=== PATIENT | female | born 1960 | race African-American/Black ===

== ENCOUNTER 2024-01-22 16:12 | Emergency (ER) | payer MEDICARE, OTHER, SELFPAY ==
[2024-01-22 16:16] VITALS: BP 114/89
[2024-01-22 16:53] VITALS: BMI 33.9
[2024-01-22 17:01] VITALS: BP 128/51
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
[2024-01-22 18:03] VITALS: BP 124/72
[2024-01-22 19:00] VITALS: BP 98/75
[2024-01-22 20:36] VITALS: BP 125/65
[2024-01-22] MEDS: NSS 1000 IV (20:36)
[2024-01-22 21:01] LABS: Urine Albumin Trace (Neg - Trace); Urine Bilirubin 1+ (Negative); Urine Character Clear (Clear); Urine Color Yellow; Urine Glucose Negative (Negative); Urine Ketone Trace (Negative); Urine Leukocyte 1+ (Negative); Urine Nitrite Negative (Negative); Urine Occult Blood Negative (Negative); Urine Specific Gravity 1.015 (<1.030); Urine Urobilinogen Negative (Neg - 1+)
[2024-01-22 21:09] LABS: Urine Mucus Few; Urine Squamous Cell >30 /LPF (Few)
[2024-01-22 21:11] LABS: Urine Bacteria Few (Negative); Urine Red Blood Cell None Seen /HPF (0-2)
== END 2024-01-22 21:39 | disposition home or self-care (01) ==
LOC: EMR 16:12
PROVIDERS: Clinical Nurse Specialist Family Health; EMERGENCY PHYSICIAN Emergency Medicine; FAMILY PHYSICIAN Nurse Practitioner
DX: R11.2 Nausea with vomiting, unspecified (principal); R10.9 Unspecified abdominal pain; R50.9 Fever, unspecified; R19.7 Diarrhea, unspecified; I48.91 Unspecified atrial fibrillation; J44.9 Chronic obstructive pulmonary disease, unspecified; E78.00 Pure hypercholesterolemia, unspecified; I11.0 Hypertensive heart disease with heart failure; I50.9 Heart failure, unspecified; J90 Pleural effusion, not elsewhere classified; D25.9 Leiomyoma of uterus, unspecified; Z85.3 Personal history of malignant neoplasm of breast; Z86.718 Personal history of other venous thrombosis and embolism; Z95.810 Presence of automatic (implantable) cardiac defibrillator; Z87.891 Personal history of nicotine dependence; Z92.21 Personal history of antineoplastic chemotherapy; Z90.11 Acquired absence of right breast and nipple
CPT/HCPCS: 99284; 96360; 74177; 81003; 81015; 87086; Q9967

== ENCOUNTER 2024-08-01 01:12 | Emergency (ER) | payer OTHER, SELFPAY ==
[2024-08-01 01:15] VITALS: BP 120/94
[2024-08-01 01:34] VITALS: BP 111/91
[2024-08-01 01:35] VITALS: BMI 31.5
[2024-08-01] MEDS: NSS 1000 IV (01:56)
[2024-08-01 01:57] LABS: % Basophils 0.3 % (0-2); % Eosinophils 0.7 % (0-6); % Immature Granulocytes 0.1 % (0-0.5); % Lymphocytes 35.1 % (20.5-51.1); % Monocytes 13.4 % (1.7-9.3); % Neutrophils 50.4 % (42.2-75.2); Absolute Eosinophils 0.1 10^3/uL (0-0.7); Absolute Lymphocytes 2.5 10^3/uL (1.2-3.4); Absolute Monocytes 0.9 10^3/uL (0.1-0.6); Absolute Neutrophils 3.6 10^3/uL (1.4-6.5); Hematocrit 39.4 % (37.0-47.0); Hemoglobin 13.1 g/dL (12.0-16.0); Mean Corp Hgb Conc. 33.2 g/dL (33.0-37.0); Mean Corpuscular Hgb 28.5 pg (27.0-31.0); Mean Corpuscular Volume 85.8 fL (81.0-99.0); Mean Platelet Volume 10.3 fL (7.4-10.4); Nucleated Red Blood Cells % 0 %; Platelet Count 251 10^3/uL (130-400); Red Blood Cell Count 4.59 10^6/uL (4.20-5.40); Red Cell Dist. Width 12.3 % (11.5-14.5)
[2024-08-01 02:09] LABS: COVID-19 Antigen Negative (Negative)
[2024-08-01 02:11] LABS: ALT (SGPT) 35 U/L (0-35); AST (SGOT) 59 U/L (14-36); Albumin 4.8 g/dl (3.5-5.0); Alkaline Phosphatase 53 U/L (38-126); Blood Urea Nitrogen 21 mg/dl (7-17); Calcium 10.2 mg/dl (8.4-10.2); Carbon Dioxide 26 mmol/L (22-30); Chloride 102 mmol/L (98-107); Estimated Creatinine Clearance 73 ml/min; Glucose 103 mg/dl (70-99); Lipase 108 U/L (23-300); Potassium 4.1 mmol/L (3.5-5.1); Sodium 137 mmol/L (135-145); eGFR > 60.00
[2024-08-01 02:12] LABS: INR 1.08; PT 14.5 Sec (11.4-14.6)
[2024-08-01 02:13] LABS: APTT 28.1 Sec (23.4-35.0)
[2024-08-01 02:14] LABS: Urine Albumin Trace (Neg - Trace); Urine Bilirubin Negative (Negative); Urine Character Slightly Cloudy (Clear); Urine Color Yellow; Urine Glucose Negative (Negative); Urine Ketone Trace (Negative); Urine Leukocyte Trace (Negative); Urine Nitrite Negative (Negative); Urine Occult Blood Negative (Negative); Urine Specific Gravity 1.025 (<1.030); Urine Urobilinogen Negative (Neg - 1+)
[2024-08-01 02:37] LABS: Urine Mucus Many; Urine Squamous Cell >30 /LPF (Few)
[2024-08-01 02:38] LABS: Urine Amorphous Seen; Urine Bacteria Many (Negative); Urine Calcium Oxalate Crystals Seen
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
[2024-08-01 02:44] LABS: Urine White Cell 16-20 /HPF (0-5)
[2024-08-01 03:56] VITALS: BP 98/68
[2024-08-01 04:00] VITALS: BP 107/60
== END 2024-08-01 05:11 | disposition home or self-care (01) ==
LOC: EMR 01:12
PROVIDERS: EMERGENCY PHYSICIAN Student in an Organized Health Care Education/Training Program; FAMILY PHYSICIAN Internal Medicine
DX: E86.0 Dehydration (principal); R11.2 Nausea with vomiting, unspecified; R19.7 Diarrhea, unspecified; I11.0 Hypertensive heart disease with heart failure; I50.9 Heart failure, unspecified; E78.00 Pure hypercholesterolemia, unspecified; J44.9 Chronic obstructive pulmonary disease, unspecified; I48.91 Unspecified atrial fibrillation; K21.9 Gastro-esophageal reflux disease without esophagitis; G47.30 Sleep apnea, unspecified; M19.90 Unspecified osteoarthritis, unspecified site; F41.9 Anxiety disorder, unspecified; Z95.810 Presence of automatic (implantable) cardiac defibrillator; Z85.3 Personal history of malignant neoplasm of breast; Z86.718 Personal history of other venous thrombosis and embolism; Z92.21 Personal history of antineoplastic chemotherapy; Z87.891 Personal history of nicotine dependence; Z90.11 Acquired absence of right breast and nipple
CPT/HCPCS: 99284; 96360; 80053; 81003; 81015; 83690; 85025; 85610; 85730; 87086; 87502; 87811

== ENCOUNTER 2024-08-06 02:26 | Observation (INO) | payer OTHER, SELFPAY ==
[2024-08-05 14:46] VITALS: BP 114/79
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
[2024-08-05] MEDS: ZOFRAN 4 MG IV (21:40)
[2024-08-05] MEDS: NSS 1000 IV (21:41)
[2024-08-05 21:53] LABS: % Basophils 0.5 % (0-2); % Eosinophils 3.6 % (0-6); % Immature Granulocytes 0.2 % (0-0.5); % Lymphocytes 37.5 % (20.5-51.1); % Monocytes 12.4 % (1.7-9.3); % Neutrophils 45.8 % (42.2-75.2); Absolute Eosinophils 0.2 10^3/uL (0-0.7); Absolute Lymphocytes 2.5 10^3/uL (1.2-3.4); Absolute Monocytes 0.8 10^3/uL (0.1-0.6); Mean Corp Hgb Conc. 34.2 g/dL (33.0-37.0); Mean Corpuscular Hgb 28.9 pg (27.0-31.0); Mean Corpuscular Volume 84.4 fL (81.0-99.0); Mean Platelet Volume 10.3 fL (7.4-10.4); Nucleated Red Blood Cells % 0 %; Platelet Count 246 10^3/uL (130-400); Red Cell Dist. Width 12.3 % (11.5-14.5); White Blood Cell Count 6.6 10^3/uL (4.8-10.8)
[2024-08-05 22:12] LABS: ALT (SGPT) 31 U/L (0-35); AST (SGOT) 30 U/L (14-36); Albumin 4.7 g/dl (3.5-5.0); Alkaline Phosphatase 61 U/L (38-126); Blood Urea Nitrogen 22 mg/dl (7-17); Carbon Dioxide 24 mmol/L (22-30); Chloride 98 mmol/L (98-107); Glucose 114 mg/dl (70-99); Lipase 150 U/L (23-300); Potassium 3.9 mmol/L (3.5-5.1); Sodium 136 mmol/L (135-145); Total Bilirubin 1.3 mg/dl (0.2-1.3); Total Protein 7.9 g/dl (6.3-8.2); eGFR 55.76
[2024-08-06 00:30] VITALS: BP 144/89
[2024-08-06 00:45] VITALS: BP 145/88
[2024-08-06 01:44] LABS: Urine Albumin Trace (Neg - Trace); Urine Bilirubin Negative (Negative); Urine Character Clear (Clear); Urine Color Yellow; Urine Glucose Negative (Negative); Urine Ketone Trace (Negative); Urine Leukocyte Negative (Negative); Urine Nitrite Negative (Negative); Urine Occult Blood Negative (Negative); Urine Urobilinogen Negative (Neg - 1+)
--- NOTE | 2024-08-06 01:55 | HPS.HSE ---
Family Physician
-
Family Physician: Tian Deal
Chief Complaint
-
Intractable vomiting
History of Present Illness
This is a 67-year-old female who has past medical history significant for paroxysmal atrial fibrillation, CHF, hypertension, hyperlipidemia, remote breast cancer who presents to the emergency department for approximately 1 week of recurrent
intractable vomiting.
Patient reports that she was first seen here about a week ago with nausea and vomiting. She has been no clear sick contacts. He has no fevers. She reports some chills. She had an episode of diarrhea initially. The diarrhea has resolved now
however patient has continued to have nausea and vomiting. She is unable to tolerate p.o. She is not having any abdominal pain. She denies any headache. She denies any neck stiffness. Patient has no history of diabetes. Denies any history of
gastric or intestinal disorders. She denies having any chest pain. She denies any shortness of breath. She reports that the Zofran that she has been giving for her vomiting is not effective orally.
In the emergency department today she was afebrile, blood pressure was stable at 135/88 with a pulse of 80, ECG showed a sensed V paced rhythm at 74. CBC was unremarkable. Electrolytes were within normal limits. Creatinine and 22 and BUN 1.1
which is similar to prior. CT abdomen and pelvis unremarkable. UA is pending. COVID test has been negative recently.
Medical History
Past Medical History
Past Medical History: Reports Arrhythmia (Proximal atrial fibrillation, status post pacemaker), Cancer (Breast CAD status post surgery and chemotherapy last in 2014.), CHF, HTN and Hypercholesterolemia
Past Surgical History: Reports Orthopedic (Right total hip arthroplasty) and Other (Right radical breast surgery with lymph node dissection)
Social History
Tobacco: Non-smoker
Alcohol: None
Drug: Marijuana
Personal: Single
Family History
Family History: Not pertinent
Allergies / Home Medications
Allergies reflects when Allergies were last updated in [facility].
Home Medications with original date entered in [facility]
Allergy/Medication List:
Allergies
Allergy/AdvReac Type Severity Reaction Status Date / Time
No Known Allergies Allergy Verified 08/05/24 14:45
Home Medications
potassium chloride 20 mEq tablet,extended release(part/cryst) (Klor-Con M) 20 meq PO DAILY Electrolyte Repletion 01/27/20
calcium 500 mg (as carbonate)-vitamin D3 5 mcg (200 unit) tablet (Oyster Shell Calcium-Vitamin D3) 1 tab PO BID Supplement 02/11/20
ferrous sulfate 325 mg (65 mg iron) tablet (FeroSul) 325 mg PO DAILY Supplement 02/11/20
montelukast 10 mg tablet 10 mg PO DAILY Allergies 02/11/20
apixaban 5 mg tablet (Eliquis) 5 mg PO BID #60 tabs 02/14/20
atorvastatin 40 mg tablet 40 mg PO QPM High cholesterol 06/09/21
furosemide 80 mg tablet 40 mg PO DAILY Fluid retention/Swelling 06/09/21
valsartan 80 mg tablet 80 mg PO QPM Blood pressure 06/09/21
metoprolol succinate 50 mg tablet,extended release 24 hr 50 mg PO DAILY Blood pressure 08/10/21
ondansetron 4 mg disintegrating tablet 4 mg PO TIDPRN PRN nausea/vomiting #10 tabs 11/09/21
albuterol sulfate 90 mcg/actuation aerosol inhaler (ProAir HFA) 2 puff inhalation R QIDPRN PRN sob 01/22/24
eszopiclone 1 mg tablet (Lunesta) 1 mg PO HSPRN PRN sleep 01/22/24
gabapentin 300 mg capsule 600 mg PO HS 01/22/24
Review of Systems
-
History Source: Patient
Constitutional: Reports No Symptoms
EENT: Reports No Symptoms
Respiratory: Reports No Symptoms
Cardiac: Reports No Symptoms
Abdomen/GI: Reports Nausea
: Reports No Symptoms
Musculoskeletal: Reports No Symptoms
Skin: Reports No Symptoms
Neurological: Reports No Symptoms
Endocrine: Reports No Symptoms
Hematologic/Lymphatic: Reports No Symptoms
Psych: Reports No Symptoms
Physical Exam
Vital Signs
Vital Signs
Temp Pulse Resp BP Pulse Ox
98.9 F 85 20 145/88 98
08/06/24 00:45 08/06/24 00:45 08/06/24 00:45 08/06/24 00:45 08/06/24 00:45
Physical Exam
General: Well Developed, Well Nourished, No Apparent Distress and Comfortable
HEENT: NormoCephalic, Anicteric, Moist mucous membranes and Atraumatic
Respiratory: Clear
Cardiac: S1/S2 and Regular Rhythm
Breast: Deferred by me
GI: Soft, Non Tender, Non Distended and Normal Bowel Sounds
Rectal: Deferred by Provider
Genito-urinary: Deferred by me
Musculoskeletal: No Clubbing, No Cyanosis and No Edema
Skin: Warm
Neuro: AO x 3 and Nonfocal/grossly intact
Psych: Calm
Laboratory Results
-
08/05/24 21:40
08/05/24 21:40
Laboratory Results
Total Bilirubin 1.3 mg/dl (0.2-1.3) 08/05/24 21:40
AST 30 U/L (14-36) 08/05/24 21:40
ALT 31 U/L (0-35) 08/05/24 21:40
Alkaline Phosphatase 61 U/L (38-126) 08/05/24 21:40
Lipase 150 U/L (23-300) 08/05/24 21:40
Data Reviewed
-
CT Scan: Report Reviewed by me
Medical Tests (Nuc Med, Echo, EKG etc): Image Personally Visualized and interpreted
Lab Data: Labs Reviewed by me
Old Records: Reviewed
Impression/Plan
-
IMPRESSION:
Patient with multiple comorbidities who is here with intractable vomiting. She has been returning to the ED several times over the last week. She has no abdominal pain. Labs are unremarkable. Electrolytes within normal limits. BUN/creatinine
within normal limits. She is otherwise well-appearing and in no acute distress. CT abdomen and pelvis shows nothing acute. UA is pending at this time. Patient has not vomited since she has been in the ED. ECG is nonischemic (paced rhythm). Trop
negative and no history of cp.
PLAN:
Intractable n/v - Patient is well appearing to me but feels uncomfortable from the nausea and says she is intolerant of po. Normal findings on exam, labs, imaging as above. Sequela of infectious gastroenteritis versus gastroparesis
- admit to med/surg observation
- prn iv antiemetics for now
- RTC metoclopromide.
- clear liquid diet as tolerated for now
- will continue her home meds including bp meds and eliquis
DVT PPX - on eliquis
Code status full code
[2024-08-06 01:57] LABS: Amphetamines Negative (Negative); Barbiturates Negative (Negative); Benzodiazepines Negative (Negative); Buprenorphine Negative (Negative); Cocaine Negative (Negative); Marijuana Positive (Negative); Methadone Negative (Negative); Methamphetamines Negative (Negative); Opiates Negative (Negative); Phencyclidine Negative (Negative); Tricyclic Antidepressants Negative (Negative)
[2024-08-06] MEDS: FLUSH (NSS) 5 FLUSH IV (03:40)
[2024-08-06] MEDS: REGLAN 10 MG IV ×2 (05:26→14:04)
[2024-08-06] MEDS: ZOFRAN 4 MG IV (05:27)
[2024-08-06 05:40] VITALS: BP 114/85
[2024-08-06 06:19] LABS: Hematocrit 37.8 % (37.0-47.0); Hemoglobin 12.6 g/dL (12.0-16.0); Mean Corp Hgb Conc. 33.3 g/dL (33.0-37.0); Mean Corpuscular Hgb 28.5 pg (27.0-31.0); Mean Corpuscular Volume 85.5 fL (81.0-99.0); Mean Platelet Volume 10.7 fL (7.4-10.4); Platelet Count 226 10^3/uL (130-400); Red Blood Cell Count 4.42 10^6/uL (4.20-5.40); Red Cell Dist. Width 12.2 % (11.5-14.5); White Blood Cell Count 6.3 10^3/uL (4.8-10.8)
[2024-08-06 06:48] LABS: Blood Urea Nitrogen 19 mg/dl (7-17); Calcium 9.4 mg/dl (8.4-10.2); Carbon Dioxide 27 mmol/L (22-30); Chloride 101 mmol/L (98-107); Glucose 84 mg/dl (70-99); Potassium 3.7 mmol/L (3.5-5.1); Sodium 139 mmol/L (135-145); eGFR > 60.00
[2024-08-06 08:50] VITALS: BP 123/75
[2024-08-06] MEDS: LASIX 40 MG PO (09:36)
[2024-08-06] MEDS: ELIQUIS 5 MG PO (09:36)
[2024-08-06] MEDS: TOPROL XL 50 MG PO (09:36)
--- NOTE | 2024-08-06 09:44 | W.PN.HOSP.TC ---
Today's Communication/Plan
-
Advance diet
Possible discharge
Assessment / Plan
Assessment / Plan
Gen-AAOx3, NAD
HEENT-NC, AT, anicteric, clear oral mm
Neck-supple
CV-reg, no M, +S1/S2
Lungs-clear B/L
Abd-soft, NT, ND
Ext-no edema
Musculoskeletal-no cyanosis, clubbing
Skin-warm and dry
Neuro-grossly non-focal
Psych-calm, cooperative
Cannabis hyperemesis syndrome -continue antiemetics, supportive care. Advance diet as tolerated.
Discussed importance of marijuana abstinence. I saw her in the hospital August 2021 for the same diagnosis.
Potential discharge later today if tolerating diet. Discussed with nursing.
Paroxysmal atrial fibrillation -continue Eliquis.
History of breast cancer
Essential hypertension
COPD without exacerbation
History of DVT
History of heart failure with reduced EF
ICD
Hyperlipidemia
Full code
Anticipated Discharge: Today
Subjective/Interval History
-
Date of Service: August 06, 2024
Patient seen and examined. Starting to feel better.
Objective Data
-
Labs:
Laboratory Results
08/05/24 08/06/24
21:40 05:16
WBC 6.6 6.3
Hgb 13.0 12.6
Hct 38.0 37.8
Plt Count 246 226
Sodium 136 139
Potassium 3.9 3.7
Chloride 98 101
Carbon Dioxide 24 27
BUN 22 H 19 H
Creatinine 1.1 H 1.0
Glucose 114 H 84
Calcium 10.0 9.4
Total Bilirubin 1.3
AST 30
ALT 31
Alkaline Phosphatase 61
Vital Signs:
Vital Signs
Temp Pulse Resp BP Pulse Ox
98.8 F 66 18 123/75 98
08/06/24 08:50 08/06/24 09:36 08/06/24 08:50 08/06/24 09:36 08/06/24 08:50
Review of Systems
-
History Source: Patient
All other systems: Reviewed and negative
--- NOTE | 2024-08-06 10:23 | PTCARENOTE ---
report given to floor rn
--- NOTE | 2024-08-06 10:25 | PTCARENOTE ---
pt aaox3. states no pain and no nausea. pt complains of being very sweaty. this is nothing new and has been addressed at outpt. pt has had breakfast with no vomiting
--- NOTE | 2024-08-06 11:39 | PTCARENOTE ---
pt received in room 225, pt oriented to room and unit, ADMISSION assessement done by this RN for downstairs maid CARING FOR PT. PT HAS CALL [facility] AND INSTRUCTED TO CALL FOR ANY ISSUES
[2024-08-06 11:47] VITALS: BP 105/64
--- NOTE | 2024-08-06 12:26 | PTCARENOTE ---
Pt tolerating clear liquid diet, apple juice and Jell-0,no nausea no vomiting. pt will order some toast and banana. Pt ambulating to br with assistance of nurse and using cane. Pt states feeling better reported no pain at this time.
--- NOTE | 2024-08-06 14:36 | W.DS.TRANS ---
DC Summary - Nutrition Director
-
Discharge Instructions:
Discharge Diagnosis/Procedures Marijuana induced vomiting
Diet Regular
Activity As tolerated
Driving Restrictions As prior to admission
Bathing Restrictions None
Instructions:
Stand-Alone Forms:
Changes to Home Medications: No
Discharge Medications:
DC Medications w/original date entered in [facility]
potassium chloride 20 mEq tablet,extended release(part/cryst) (Klor-Con M) 20 meq PO DAILY Electrolyte Repletion 01/27/20
calcium 500 mg (as carbonate)-vitamin D3 5 mcg (200 unit) tablet (Oyster Shell Calcium-Vitamin D3) 1 tab PO BID Supplement 02/11/20
ferrous sulfate 325 mg (65 mg iron) tablet (FeroSul) 325 mg PO DAILY Supplement 02/11/20
montelukast 10 mg tablet 10 mg PO DAILY Allergies 02/11/20
apixaban 5 mg tablet (Eliquis) 5 mg PO BID #60 tabs 02/14/20
atorvastatin 40 mg tablet 40 mg PO QPM High cholesterol 06/09/21
furosemide 80 mg tablet 40 mg PO DAILY Fluid retention/Swelling 06/09/21
valsartan 80 mg tablet 80 mg PO QPM Blood pressure 06/09/21
metoprolol succinate 50 mg tablet,extended release 24 hr 50 mg PO DAILY Blood pressure 08/10/21
ondansetron 4 mg disintegrating tablet 4 mg PO TIDPRN PRN nausea/vomiting #10 tabs 11/09/21
albuterol sulfate 90 mcg/actuation aerosol inhaler (ProAir HFA) 2 puff inhalation R QIDPRN PRN sob 01/22/24
gabapentin 300 mg capsule 600 mg PO HS 01/22/24
metoclopramide HCl 10 mg tablet 10 mg PO Q6H PRN nausea and vomiting #14 tabs 08/06/24
Home Medication Changes
Pending Results: No
[2024-08-06 15:10] VITALS: BP 110/62
--- NOTE | 2024-08-06 15:22 | CM ---
CM reviewed chart, patient for discharge today. Patient seen bedside, initial assessment completed. Patient resides independently in a handicap accessible apartment, ramp to enter. Patient reports history of [facility] or [facility] in past, unsure who,
denies SNF history. Patient has a walker and cane at home. Patient reports PCP Tian Deal, [facility]. CM reviewed [facility] form with patient, provided with copy. Patient denies any needs upon discharge. CM will continue to follow for
all discharge planning needs.
Plan; home, no needs.
--- NOTE | 2024-08-06 16:07 | PTCARENOTE ---
Per Dr Ball orders pt D/C home now. Pt able to tolerate regular food, no Nausea or vomiting reported from pt. INT D/c all D/c orders given to pt. A Food bag given to pt.
== END 2024-08-06 16:00 | disposition home or self-care (01) ==
LOC: LDRP 02:26
PROVIDERS: Emergency Medicine; ADMITTING PHYSICIAN Internal Medicine; ATTENDING PHYSICIAN Hospitalist; EMERGENCY PHYSICIAN Emergency Medicine; FAMILY PHYSICIAN Internal Medicine
DX: R11.2 Nausea with vomiting, unspecified (principal); F12.90 Cannabis use, unspecified, uncomplicated; R10.9 Unspecified abdominal pain; I48.0 Paroxysmal atrial fibrillation; I11.0 Hypertensive heart disease with heart failure; I50.22 Chronic systolic (congestive) heart failure; J44.9 Chronic obstructive pulmonary disease, unspecified; R10.32 Left lower quadrant pain; I25.10 Atherosclerotic heart disease of native coronary artery without angina pectoris; D25.9 Leiomyoma of uterus, unspecified; G89.29 Other chronic pain; R68.83 Chills (without fever); R19.7 Diarrhea, unspecified; N28.89 Other specified disorders of kidney and ureter; E78.00 Pure hypercholesterolemia, unspecified; K21.9 Gastro-esophageal reflux disease without esophagitis; Z85.3 Personal history of malignant neoplasm of breast; Z92.21 Personal history of antineoplastic chemotherapy; Z87.891 Personal history of nicotine dependence; Z86.718 Personal history of other venous thrombosis and embolism; Z95.0 Presence of cardiac pacemaker; Z96.641 Presence of right artificial hip joint; Z79.01 Long term (current) use of anticoagulants; Z60.2 Problems related to living alone
CPT/HCPCS: 74177; 80048; 80053; 80306; 81003; 83690; 85025; 85027; 93005; 96361; 96374; 99285; Q9967

== ENCOUNTER → 2024-08-22 11:12 | Outpatient (REF) | payer OTHER, SELFPAY | LOC: HWRCS 11:12 | PROVIDERS: ATTENDING PHYSICIAN Student in an Organized Health Care Education/Training Program; FAMILY PHYSICIAN Internal Medicine | DX: I42.8 Other cardiomyopathies (principal) | CPT/HCPCS: 93306 ==

== ENCOUNTER → 2024-09-27 07:46 | Outpatient (REF) | payer OTHER, SELFPAY | LOC: MRI 07:46 | PROVIDERS: ATTENDING PHYSICIAN Nurse Practitioner Family | DX: D41.12 Neoplasm of uncertain behavior of left renal pelvis (principal) | CPT/HCPCS: 74183; A9575 ==

== ENCOUNTER → 2024-11-13 09:08 | Outpatient (REF) | payer OTHER, SELFPAY | LOC: RAD 09:08 | PROVIDERS: ATTENDING PHYSICIAN Internal Medicine Gastroenterology | DX: R13.19 Other dysphagia (principal) | CPT/HCPCS: 74221 ==

== ENCOUNTER → 2025-06-05 07:45 | Outpatient (REF) | payer OTHER, SELFPAY | LOC: RAD 07:45 | PROVIDERS: ATTENDING PHYSICIAN Student in an Organized Health Care Education/Training Program; FAMILY PHYSICIAN Internal Medicine | DX: R60.0 Localized edema (principal) | CPT/HCPCS: 93922 ==

== ENCOUNTER → 2025-07-16 13:35 | Outpatient (REF) | payer OTHER, SELFPAY | LOC: MRI 13:35 | PROVIDERS: ATTENDING PHYSICIAN Family Medicine | DX: M23.91 Unspecified internal derangement of right knee (principal) | CPT/HCPCS: 73721; 74183; A9575 ==